=== PATIENT | female | born 1995 ===

== ENCOUNTER 2021-06-03 16:25 | Observation (INO) | payer BC ==
[2021-06-03] MEDS ORDERED: MORPHINE 4 MG/1 ML INJ IV ONE (21:28)
[2021-06-03] MEDS ORDERED: ONDANSETRON 4 MG/2 ML INJ IV ONE (21:28)
[2021-06-03] MEDS ORDERED: SODIUM CHLORIDE 0.9% 1000 ML 1,000 ML IV ONE (21:28)
[2021-06-03 21:46] LABS: Basophils % (Auto) 0.2 % (0.0-1.8); Eosinophils % (Auto) 0.1 % (0.0-4.3); Hemoglobin 12.3 gm/dl (10.1-14.3); Lymphocytes # (Auto) 1.6 K/mm3 (1.2-5.4); Lymphocytes % (Auto) 12.9 % (13.4-35.0); Mean Corpuscular HGB Conc 32 % (30-34); Mean Corpuscular Volume 82 fl (79-97); Monocytes # (Auto) 1.3 K/mm3 (0.0-0.8); Monocytes % (Auto) 10.8 % (0.0-7.3); Platelet Count 262 K/mm3 (140-440); Red Blood Count 4.76 M/mm3 (3.65-5.03); Red Cell Distribution Width 15.4 % (13.2-15.2)
[2021-06-03 22:09] LABS: Alanine Aminotransferase 50 units/L (7-56); Albumin 3.9 g/dL (3.9-5); BUN/Creatinine Ratio 6; Blood Urea Nitrogen 5 mg/dL (7-17); Calcium 9.5 mg/dL (8.4-10.2); Hemolysis Index 13
[2021-06-03] MEDS ORDERED: ACETAMINOPHEN 325 MG TAB PO ONE (22:10)
--- NOTE | 2021-06-03 22:13 | Emergency Department Report ---
ED Abdominal Pain HPI - General Chief Complaint: Urogenital-Female Stated Complaint: FEVER, PAIN LT SIDE BLOOD IN URINE Time Seen by Provider: 06/03/21 21:05 Source: patient Mode of arrival: Ambulatory Limitations: No Limitations - History of Present Illness Initial Comments: Patient is a 26-year-old female presents emergency room complaints of left-sided abdominal pain and left flank pain that began 2 to 3 days ago. She has associated hematuria and fever of 102. She also has nausea. She denies any vomiting, diarrhea, hematochezia, melena, hematemesis, abnormal vaginal discharge. She states that she had a normal bowel movement this morning. She states that she is sexually active with one partner and states that she received STD testing last month and denies any concerns for STDs. Patient states that she went to urgent care yesterday and had her urine tested and states that she states that she was told she did not have a UTI, she states that she was advised she had a sinus infection and bilateral ear infection, she denies any ear pain, ear drainage, cough, sinus pressure, rhinorrhea, congestion. No past medical history. No allergies to medications. Last menstrual cycle 3 weeks ago. Severity scale (0 -10): 6 - Related Data Allergies Allergy/AdvReac Type Severity Reaction Status Date / Time No Known Allergies Allergy Unverified 06/03/21 18:40 ED Review of Systems ROS: Stated complaint: FEVER, PAIN LT SIDE BLOOD IN URINE Other details as noted in HPI Comment: All other systems reviewed and negative ED Past Medical Hx - Past Medical History Previous Medical History?: Yes Hx Asthma: Yes - Surgical History Past Surgical History?: No ED Physical Exam - General Limitations: No Limitations General appearance: alert, in no apparent distress - Head Head exam: Present: atraumatic, normocephalic - Eye Eye exam: Present: normal appearance - ENT ENT exam: Present: normal orophraynx, mucous membranes moist, TM's normal bilaterally, normal external ear exam, other (no sinus ttp ) - Respiratory Respiratory exam: Present: normal lung sounds bilaterally. Absent: respiratory distress, wheezes, rales, rhonchi, stridor, chest wall tenderness, accessory muscle use, decreased breath sounds, prolonged expiratory - Cardiovascular Cardiovascular Exam: Present: regular rate, normal rhythm, normal heart sounds. Absent: systolic murmur, diastolic murmur, rubs, gallop - GI/Abdominal GI/Abdominal exam: Present: soft, tenderness (left sided), normal bowel sounds. Absent: distended, guarding, rebound, rigid - Back Exam Back exam: Present: CVA tenderness (L). Absent: CVA tenderness (R) - Neurological Exam Neurological exam: Present: alert, oriented X3 - Psychiatric Psychiatric exam: Present: normal affect, normal mood - Skin Skin exam: Present: warm, dry, intact ED Course Vital Signs 06/03/21 18:42 Temperature 100.5 F H Pulse Rate 101 H Respiratory 18 Rate Blood Pressure 127/56 [Right] O2 Sat by Pulse 98 Oximetry - Consultations Consultation #1: 06/04/21 00:[address] Velez, hospitalist who will accept and resume care of patient, will admit to hospitalist service ED Medical Decision Making - Lab Data Result diagrams: 06/03/21 21:32 06/03/21 21:32 Lab Results 06/03/21 06/03/21 06/03/21 Range/Units 21:32 21:32 21:32 WBC 12.3 H (4.5-11.0) K/mm3 RBC 4.76 (3.65-5.03) M/mm3 Hgb 12.3 (10.1-14.3) gm/dl Hct 39.0 (30.3-42.9) % MCV 82 (79-97) fl MCH 26 L (28-32) pg MCHC 32 (30-34) % RDW 15.4 H (13.2-15.2) % Plt Count 262 (140-440) K/mm3 Lymph % (Auto) 12.9 L (13.4-35.0) % Izard % (Auto) 10.8 H (0.0-7.3) % Eos % (Auto) 0.1 (0.0-4.3) % Baso % (Auto) 0.2 (0.0-1.8) % Lymph # (Auto) 1.6 (1.2-5.4) K/mm3 Izard # (Auto) 1.3 H (0.0-0.8) K/mm3 Eos # (Auto) 0.0 (0.0-0.4) K/mm3 Baso # (Auto) 0.0 (0.0-0.1) K/mm3 Seg Neutrophils % 76.0 H (40.0-70.0) % Seg Neutrophils # 9.4 H (1.8-7.7) K/mm3 Sodium 133 L (137-145) mmol/L Potassium 3.7 (3.6-5.0) mmol/L Chloride 96.3 L (98-107) mmol/L Carbon Dioxide 26 (22-30) mmol/L Anion Gap 14 mmol/L BUN 5 L (7-17) mg/dL Creatinine 0.9 (0.6-1.2) mg/dL Estimated GFR > 60 ml/min BUN/Creatinine Ratio 6 % Glucose 113 H (65-100) mg/dL Calcium 9.5 (8.4-10.2) mg/dL Total Bilirubin 0.30 (0.1-1.2) mg/dL AST 59 H (5-40) units/L ALT 50 (7-56) units/L Alkaline Phosphatase 75 (35-129) units/L Total Protein 7.4 (6.3-8.2) g/dL Albumin 3.9 (3.9-5) g/dL Albumin/Globulin Ratio 1.1 % Lipase 18 (13-60) units/L HCG, Qual Negative (Negative) Urine Color (Yellow) Urine Turbidity (Clear) Urine pH (5.0-7.0) Ur Specific [place] (1.003-1.030) Urine Protein (Negative) mg/dL Urine Glucose (UA) (Negative) mg/dL Urine Ketones (Negative) mg/dL Urine Blood (Negative) Urine Nitrite (Negative) Urine Bilirubin (Negative) Urine Urobilinogen (<2.0) mg/dL Ur Leukocyte Esterase (Negative) Urine WBC (Auto) (0.0-6.0) /HPF Urine RBC (Auto) (0.0-6.0) /HPF U Epithel Cells (Auto) (0-13.0) /HPF Urine Mucus /HPF 06/03/21 Range/Units 23:23 WBC (4.5-11.0) K/mm3 RBC (3.65-5.03) M/mm3 Hgb (10.1-14.3) gm/dl Hct (30.3-42.9) % MCV (79-97) fl MCH (28-32) pg MCHC (30-34) % RDW (13.2-15.2) % Plt Count (140-440) K/mm3 Lymph % (Auto) (13.4-35.0) % Izard % (Auto) (0.0-7.3) % Eos % (Auto) (0.0-4.3) % Baso % (Auto) (0.0-1.8) % Lymph # (Auto) (1.2-5.4) K/mm3 Izard # (Auto) (0.0-0.8) K/mm3 Eos # (Auto) (0.0-0.4) K/mm3 Baso # (Auto) (0.0-0.1) K/mm3 Seg Neutrophils % (40.0-70.0) % Seg Neutrophils # (1.8-7.7) K/mm3 Sodium (137-145) mmol/L Potassium (3.6-5.0) mmol/L Chloride (98-107) mmol/L Carbon Dioxide (22-30) mmol/L Anion Gap mmol/L BUN (7-17) mg/dL Creatinine (0.6-1.2) mg/dL Estimated GFR ml/min BUN/Creatinine Ratio % Glucose (65-100) mg/dL Calcium (8.4-10.2) mg/dL Total Bilirubin (0.1-1.2) mg/dL AST (5-40) units/L ALT (7-56) units/L Alkaline Phosphatase (35-129) units/L Total Protein (6.3-8.2) g/dL Albumin (3.9-5) g/dL Albumin/Globulin Ratio % Lipase (13-60) units/L HCG, Qual (Negative) Urine Color Yellow (Yellow) Urine Turbidity Slightly-cloudy (Clear) Urine pH 5.0 (5.0-7.0) Ur Specific [place] 1.030 (1.003-1.030) Urine Protein 30 mg/dl (Negative) mg/dL Urine Glucose (UA) Neg (Negative) mg/dL Urine Ketones Neg (Negative) mg/dL Urine Blood Mod (Negative) Urine Nitrite Neg (Negative) Urine Bilirubin Neg (Negative) Urine Urobilinogen < 2.0 (<2.0) mg/dL Ur Leukocyte Esterase Tr (Negative) Urine WBC (Auto) 14.0 H (0.0-6.0) /HPF Urine RBC (Auto) 3.0 (0.0-6.0) /HPF U Epithel Cells (Auto) 10.0 (0-13.0) /HPF Urine Mucus Few /HPF - Radiology Data Radiology results: report reviewed Ordering Physician: DESHAWN OSBORNE Date of Service: 06/03/21 Procedure(s): CT abdomen pelvis w con Accession Number(s): [id number] cc: DESHAWN OSBORNE CT abdomen pelvis w con INDICATION: Pt complains of fever, LEFT sided abd pain, Gross Hematuria. COMPARISON: None TECHNIQUE: Abdominal and pelvic CT exam performed. All CT scans at this location are performed using CT dose reduction for ALARA by means of automated exposure control. FINDINGS: CT ABDOMEN and PELVIS: Lung Bases: No significant abnormality. Liver: No significant abnormality. Biliary: No significant abnormality. Spleen: No significant abnormality. Pancreas: No significant abnormality. Adrenals: No significant abnormality. Kidneys: Patchy areas of decreased enhancement seen throughout the left renal cortex. Lymphatics: No lymphadenopathy. Vasculature: No significant abnormality. Bowel: No significant abnormality. Appendix is nonvisualized. However, no inflammatory changes in the right lower quadrant to suggest appendicitis. Pelvis: Peripherally enhancing small left corpus luteal cyst. Osseous Structures: No aggressive osseous lesion. Additional Findings: None IMPRESSION: 1. Patchy areas of decreased enhancement in the left kidney consistent with pyelonephritis. Signer Name: Micha Barragan MD Signed: 06/03/2021 11:27 PM Workstation Name: [id number] Transcribed By: CS Dictated By: Micha Barragan MD Electronically Authenticated By: Micha Barragan MD Signed Date/Time: 06/03/212326 DD/ 24 TD/TT: - Medical Decision Making Patient is a 26-year-old female presents emergency room complaints of left-sided abdominal pain and left flank pain that began 2 to 3 days ago. She has associated hematuria and fever of 102. She also has nausea. She denies any vomiting, diarrhea, hematochezia, melena, hematemesis, abnormal vaginal discharge. She states that she had a normal bowel movement this morning. She states that she is sexually active with one partner and states that she received STD testing last month and denies any concerns for STDs. Patient states that she went to urgent care yesterday and had her urine tested and states that she states that she was told she did not have a UTI, she states that she was advised she had a sinus infection and bilateral ear infection, she denies any ear pain, ear drainage, cough, sinus pressure, rhinorrhea, congestion. No past medical history. No allergies to medications. Last menstrual cycle 3 weeks ago. Vitals with fever and tachycardia. On exam patient has left CVAT and left-sided abdominal tenderness palpation, no guarding, no rebound, no rigidity, normal sounds, no peritoneal signs. Labs significant for white blood cell count of 12.3 and mild dehydration. UA shows evidence of UTI. CT abdomen pelvis with IV contrast: 1. Patchy areas of decreased enhancement in the left kidney consistent with pyelonephritis. Patient given IV fluids, Zofran, morphine, ceftriaxone. Discussed case with Dr. Che, ER attending who advised to speak with hospitalist for admission. Spoke with Dr. Velez, hospitalist who will accept and resume care of patient, will admit to hospitalist service Critical care attestation.: If time is entered above; I have spent that time in minutes in the direct care of this critically ill patient, excluding procedure time. ED Disposition Clinical Impression: Pyelonephritis, Left flank pain, Nausea Fever Qualifiers: Fever type: unspecified Qualified Code(s): R50.9 - Fever, unspecified Leukocytosis Qualifiers: Leukocytosis type: unspecified Qualified Code(s): D72.829 - Elevated white blood cell count, unspecified Disposition: OP ADMIT IP TO THIS HOSP Is pt being admited?: Yes Does the pt Need Aspirin: No Condition: Fair Time of Disposition: 00:05 Print Language: GABONESE
--- NOTE | 2021-06-03 23:31 | Cat Scan Report ---
CT abdomen pelvis w con INDICATION: Pt complains of fever, LEFT sided abd pain, Gross Hematuria. COMPARISON: None TECHNIQUE: Abdominal and pelvic CT exam performed. All CT scans at this location are performed using CT dose reduction for ALARA by means of automated exposure control. FINDINGS: CT ABDOMEN and PELVIS: Lung Bases: No significant abnormality. Liver: No significant abnormality. Biliary: No significant abnormality. Spleen: No significant abnormality. Pancreas: No significant abnormality. Adrenals: No significant abnormality. Kidneys: Patchy areas of decreased enhancement seen throughout the left renal cortex. Lymphatics: No lymphadenopathy. Vasculature: No significant abnormality. Bowel: No significant abnormality. Appendix is nonvisualized. However, no inflammatory changes in th e right lower quadrant to suggest appendicitis. Pelvis: Peripherally enhancing small left corpus luteal cyst. Osseous Structures: No aggressive osseous lesion. Additional Findings: None IMPRESSION: 1. Patchy areas of decreased enhancement in the left kidney consistent with pyelonephritis. Signer Name: Micha Barragan MD Signed: 06/03/2021 11:27 PM Workstation Name: [id number]
[2021-06-03] MEDS ORDERED: cefTRIAXone/NS 1 GM/50 ML 1 GM/50 ML BAG IV ONE (23:36)
[2021-06-03 23:42] LABS: Bilirubin,Urine NEG (Negative); Blood,Urine MOD (Negative); Color,Urine Yellow (Yellow); Mucus,Urine FEW /HPF; Urobilinogen,Urine < 2.0 mg/dL (<2.0)
[2021-06-04] MEDS ORDERED: ONDANSETRON 4 MG/2 ML INJ IV PRN (01:15)
[2021-06-04] MEDS ORDERED: MAGNESIUM HYDROXIDE (MOM) ORAL LIQD UDC PO PRN (01:20)
--- NOTE | 2021-06-04 01:29 | History and Physical Report ---
History of Present Illness Date of examination: 06/04/21 Date of admission: 06/04/2021 Chief complaint: Left Flank Pain Fever History of present illness: 26-year-old -[place] female presenting to the emergency room today complaining of left-sided flank pain which has been ongoing for the past 2 to 3 days. She also indicates that she has been having hematuria and dysuria over the past few days. She has had associated nausea, fever and chills. She denies any vomiting, no diarrhea, no chest pain or shortness of breath, denies any vaginal discharge, no bright red blood per rectum. She denies any sinus congestion, no cough, no rhinorrhea or ear discharge. Patient had gone to an urgent care facility and was diagnosed with a probable sinus infection and given Augmentin. She had been on the antibiotics without any significant improvement. She had a fever of about 102 F today and decided to check into the emergency room. Upon arrival here in the emergency room, patient had a fever of 100.5 F and was mildly tachycardic. Urinalysis shows a UTI. Mild leukocytosis of 12.5. CT scan of the abdomen and pelvis reveals patchy areas of decreased enhancement in the left kidney consistent with pyelonephritis. Past History Past Medical History: other (Asthma) Past Surgical History: No surgical history Social history: no significant social history Family history: stroke (Mother had stroke) Medications and Allergies Allergies Allergy/AdvReac Type Severity Reaction Status Date / Time No Known Allergies Allergy Verified 06/04/21 01:24 Active Meds: Active Medications Acetaminophen (Acetaminophen 325 Mg Tab) 650 mg PO Q4H PRN PRN Reason: Pain MILD(1-3)/Fever >100.5/PEARCE Sodium Chloride (Nacl 0.9% 1000 Ml) 1,000 mls @ 125 mls/hr IV DIRECT MIKE Magnesium Hydroxide (Magnesium Hydroxide (Mom) Oral Liqd Udc) 30 ml PO Q4H PRN PRN Reason: Constipation Morphine Sulfate (Morphine 2 Mg/1 Ml Inj) 2 mg IV Q4H PRN PRN Reason: Pain, Moderate (4-6) Ondansetron HCl (Ondansetron 4 Mg/2 Ml Inj) 4 mg IV Q8H PRN PRN Reason: Nausea And Vomiting Sodium Chloride (Sodium Chloride 0.9% 10 Ml Flush Syringe) 10 ml IV BID MIKE Sodium Chloride (Sodium Chloride 0.9% 10 Ml Flush Syringe) 10 ml IV PRN PRN PRN Reason: LINE FLUSH Review of Systems Constitutional: fever, chills Ears, nose, mouth and throat: no nasal congestion, no sore throat Cardiovascular: no chest pain, no palpitations Respiratory: no cough, no shortness of breath Gastrointestinal: abdominal pain, nausea, no vomiting, no diarrhea Genitourinary Female: flank pain, dysuria, hematuria Musculoskeletal: no neck pain, no low back pain Integumentary: no rash, no pruritis Neurological: no headaches, no confusion Psychiatric: no anxiety, no depression Endocrine: no polydipsia, no polyuria, no nocturia Exam - Constitutional Vitals: Temp Pulse Resp BP Pulse Ox 100.5 F H 101 H 18 127/56 98 06/03/21 18:42 06/03/21 18:42 06/03/21 18:42 06/03/21 18:42 06/03/21 18:42 General appearance: Present: no acute distress, well-nourished - EENT Eyes: Present: PERRL, EOM intact. Absent: scleral icterus ENT: hearing intact, clear oral mucosa, dentition normal - Neck Neck: Present: supple, normal ROM - Respiratory Respiratory effort: normal Respiratory: bilateral: CTA - Cardiovascular Rhythm: regular Heart Sounds: Present: S1 & S2. Absent: gallop, systolic murmur, diastolic murmur - Extremities Extremities: no ischemia, pulses intact, pulses symmetrical, No edema, normal temperature, normal color, Full ROM Peripheral Pulses: within normal limits - Abdominal General gastrointestinal: Present: soft, tender (left flank), non-distended, normal bowel sounds. Absent: mass - Integumentary Integumentary: Present: clear, warm, dry. Absent: rash - Musculoskeletal Musculoskeletal: strength equal bilaterally - Psychiatric Psychiatric: appropriate mood/affect, intact judgment & insight, memory intact, cooperative - Neurologic Neurologic: CNII-XII intact, no focal deficits, moves all extremities Results - Labs CBC & Chem 7: 06/03/21 21:32 06/03/21 21:32 Labs: Abnormal lab results 06/03/21 06/03/21 06/03/21 Range/Units 21:32 21:32 23:23 WBC 12.3 H (4.5-11.0) K/mm3 MCH 26 L (28-32) pg RDW 15.4 H (13.2-15.2) % Lymph % (Auto) 12.9 L (13.4-35.0) % [place] % (Auto) 10.8 H (0.0-7.3) % [place] # (Auto) 1.3 H (0.0-0.8) K/mm3 Seg Neutrophils % 76.0 H (40.0-70.0) % Seg Neutrophils # 9.4 H (1.8-7.7) K/mm3 Sodium 133 L (137-145) mmol/L Chloride 96.3 L (98-107) mmol/L BUN 5 L (7-17) mg/dL Glucose 113 H (65-100) mg/dL AST 59 H (5-40) units/L Urine WBC (Auto) 14.0 H (0.0-6.0) /HPF Assessment and Plan - Patient Problems (1) Pyelonephritis Current Visit: Yes Status: Acute Plan to address problem: Patient placed on empiric IV antibiotics and IV fluid. Will await urine culture results. (2) Leukocytosis Current Visit: Yes Status: Acute Qualifiers: Leukocytosis type: unspecified Qualified Code(s): D72.829 - Elevated white blood cell count, unspecified Plan to address problem: Possibly secondary to the pyelonephritis. We will monitor CBC. (3) DVT prophylaxis Current Visit: Yes Status: Acute Plan to address problem: Patient placed on subcutaneous Lovenox. (4) Full code status Current Visit: Yes Status: Acute Plan to address problem: Patient is full code.
[2021-06-04] MEDS ORDERED: cefTRIAXone/NS 1 GM/50 ML 1 GM/50 ML BAG IV ONE (02:15)
[2021-06-04] MEDS: SODIUM CHLORIDE 0.9% 1000 ML 1,000 ML IV SCH ×3 (04:38→21:13)
[2021-06-04] MEDS: MORPHINE 2 MG/1 ML INJ IV PRN ×2 (07:59→17:29)
[2021-06-04] MEDS: ACETAMINOPHEN 325 MG TAB PO PRN ×2 (12:24→22:20)
[2021-06-04] MEDS ORDERED: ENOXAPARIN 40 MG/0.4 ML INJ SUB-Q SCH (22:00)
[2021-06-05] MEDS ORDERED: cefTRIAXone/NS 1 GM/50 ML 1 GM/50 ML BAG IV SCH (02:00)
[2021-06-05] MEDS: SODIUM CHLORIDE 0.9% 1000 ML 1,000 ML IV SCH (05:00)
--- NOTE | 2021-06-05 06:33 | Event Note ---
Date: 06/04/21 Admitted medical economics consultant for acute pyelonephritis Patient forming machine tender in the left flank Needs IV antibiotics and IV fluids will reassess tomorrow regarding urine cultures and possible discharge
[2021-06-05 07:57] LABS: Basophils % (Auto) 0.5 % (0.0-1.8); Eosinophils # (Auto) 0.1 K/mm3 (0.0-0.4); Eosinophils % (Auto) 1.5 % (0.0-4.3); Hematocrit 34.6 % (30.3-42.9); Hemoglobin 11.3 gm/dl (10.1-14.3); Lymphocytes # (Auto) 1.6 K/mm3 (1.2-5.4); Lymphocytes % (Auto) 26.1 % (13.4-35.0); Mean Corpuscular HGB Conc 33 % (30-34); Mean Corpuscular Volume 81 fl (79-97); Monocytes # (Auto) 0.9 K/mm3 (0.0-0.8); Monocytes % (Auto) 14.1 % (0.0-7.3); Platelet Count 237 K/mm3 (140-440); Red Blood Count 4.26 M/mm3 (3.65-5.03)
[2021-06-05 08:04] LABS: INR 0.95 (0.87-1.13)
[2021-06-05 08:21] LABS: Alanine Aminotransferase 81 units/L (7-56); Albumin 3.5 g/dL (3.9-5); Blood Urea Nitrogen 4 mg/dL (7-17); Calcium 8.5 mg/dL (8.4-10.2); Hemolysis Index 1
[2021-06-05 08:36] LABS: BUN/Creatinine Ratio 7
--- NOTE | 2021-06-05 10:51 | Discharge Summary ---
Providers - Providers Date of Admission: 06/04/21 00:05 Attending physician: ANANT WEBB MD Primary care physician: SECURITY SYSTEM ANALYST Hospitalization Reason for admission: Flank pain Condition: Stable Hospital course: 26-year-old -[place] female presenting to the emergency room today complaining of left-sided flank pain which has been ongoing for the past 2 to 3 days. She also indicates that she has been having hematuria and dysuria over the past few days. She has had associated nausea, fever and chills. She denies any vomiting, no diarrhea, no chest pain or shortness of breath, denies any vaginal discharge, no bright red blood per rectum. She denies any sinus congestion, no cough, no rhinorrhea or ear discharge. Patient had gone to an urgent care facility and was diagnosed with a probable sinus infection and given Augmentin. She had been on the antibiotics without any significant improvement. She had a fever of about 102 F today and decided to check into the emergency room. Upon arrival here in the emergency room, patient had a fever of 100.5 F and was mildly tachycardic. Urinalysis shows a UTI. Mild leukocytosis of 12.5. CT scan of the abdomen and pelvis reveals patchy areas of decreased enhancement in the left kidney consistent with pyelonephritis. Patient's Examination today remains afebrile. Did discuss the findings with her and the plan of care she verbalized understanding she requested for referral to Electronic Publishing Specialist. I recommeneded urologist due to her concern that she may have the same condition her mother has which is recurrent urine infection I gave her information for both specialist I also recommended outpatient repeat of LFTs to ensure resolution Discharge diagnosis Acute pyelonephritis Abdominal pain secondary to pyelonephritis Leukocytosis Hyponatremia now resolved Transaminitis mild Disposition: DC-01 TO HOME OR SELFCARE Final Discharge Diagnosis (Prints w/discharge instructions): Acute pyelonephritis Time spent for discharge: 35 Core Measure Documentation - Palliative Care Palliative Care/ Comfort Measures: Not Applicable - Core Measures Any of the following diagnoses?: none Exam - Physical Exam Narrative exam: VITAL SIGNS: Reviewed. GENERAL: The patient appears normally developed, Vital signs as documented. HEAD: No signs of head trauma. EYES: Pupils are equal. Extraocular motions intact. EARS: Hearing grossly intact. MOUTH: Oropharynx is normal. NECK: No adenopathy, no JVD. CHEST: Chest with clear breath sounds bilaterally. No wheezes, rales, or rhonchi. CARDIAC: Regular rate and rhythm. S1 and S2, without murmurs, gallops, or rubs. VASCULAR: No Edema. Peripheral pulses normal and equal in all extremities. ABDOMEN: Mild flank tenderness on the soft, and non distended. No rebound or guarding, and no masses palpated. Bowel Sounds normal. MUSCULOSKELETAL: Mild flank tenderness on the left good range of motion of all major joints. Extremities without clubbing, cyanosis or edema. NEUROLOGIC EXAM: Alert and oriented x 3 No focal sensory or strength deficits. Speech normal. Follows commands. PSYCHIATRIC: Mood normal. SKIN: detail exam as documented in skin assessment - Constitutional Vitals: Temp Pulse Resp BP Pulse Ox 98.0 F 71 18 114/56 99 06/05/21 05:43 06/05/21 05:43 06/05/21 05:43 06/05/21 05:43 06/05/21 05:43 Plan Activity: advance as tolerated, fall precautions Diet: low fat Special Instructions: record daily weights, record daily BP diary Plan of Treatment: recommend ibuprofen 400mg q6rs prn for pain- OTC Follow up with: PRIMARY CAREMD [Primary Care Provider] - 7 Days ARIC MARTINS MD [Staff Physician] - 7 Days LESTER LOWERY MD [Staff Physician] - 7 Days Prescriptions: Fluconazole [Diflucan TAB] 150 mg PO QDAY #1 tablet Saccharomyces Boulardii [Florastor] 250 mg PO DAILY 10 Days #10 capsule levoFLOXacin [Levaquin TAB] 500 mg PO QDAY #10 tablet oxyCODONE /ACETAMINOPHEN [Percocet 5/325 mg] 1 tab PO Q6H PRN #14 tablet PRN Reason: Pain, Moderate (4-6) Sennosides/Docusate Sodium [Senna Plus 8.6-50 mg Tablet] 1 each PO DAILY #14 tablet
[2021-06-05] MEDS ORDERED: oxyCODONE /ACETAMINOPHEN 5-325MG TAB PO PRN (11:30)
[2021-06-05 13:04] VITALS: BP 108/62
== END 2021-06-05 14:00 | disposition home or self-care (01) ==
LOC: ED 16:25 → 3A 06-04 00:05
PROVIDERS: ADMIT Internal Medicine Geriatric Medicine; ATTEND Internal Medicine
DX: N12 Tubulo-interstitial nephritis, not specified as acute or chronic (principal); D72.829 Elevated white blood cell count, unspecified; R10.9 Unspecified abdominal pain; R11.0 Nausea; J45.909 Unspecified asthma, uncomplicated; R74.01 Elevation of levels of liver transaminase levels; E87.1 Hypo-osmolality and hyponatremia
CPT/HCPCS: 36415; 74177; 80053; 81001; 83690; 84703; 85025; 85610; 87086; 96361; 96365; 96366; 96372; 96375; 96376; 99285; G0378; J0696; J1650; J2270; J2405; J7030; Q9967